=== PATIENT | female | born 1950 | race Caucasian/White ===

== ENCOUNTER → 2023-04-06 09:11 | Outpatient (REF) | payer MEDICARE, OTHER, SELFPAY | LOC: HWRAD 09:11 | PROVIDERS: ATTENDING PHYSICIAN Family Medicine | DX: M81.0 Age-related osteoporosis without current pathological fracture (principal) | CPT/HCPCS: 77080 ==

== ENCOUNTER → 2023-04-27 08:01 | Outpatient (REF) | payer MEDICARE, OTHER, SELFPAY | LOC: HWRAD 08:01 | PROVIDERS: ATTENDING PHYSICIAN Internal Medicine Rheumatology; FAMILY PHYSICIAN Family Medicine | DX: G89.29 Other chronic pain (principal); M06.09 Rheumatoid arthritis without rheumatoid factor, multiple sites; M18.0 Bilateral primary osteoarthritis of first carpometacarpal joints; M19.90 Unspecified osteoarthritis, unspecified site; M25.511 Pain in right shoulder; M25.512 Pain in left shoulder | CPT/HCPCS: 73030 ==